=== PATIENT | male | born 1980 | race Caucasian/White ===

== ENCOUNTER 2020-03-05 18:44 | Emergency (ER) | payer MEDICAID ==
[~2020-03-05] VITALS: Ht 182.9 cm; Wt 102.7 kg
[2020-03-05 19:02] VITALS: Ht 182.9 cm; Wt 102.7 kg
[2020-03-05] MEDS ORDERED: LISINOPRIL-HCT1 EAC8 PO (19:04)
[2020-03-05] MEDS ORDERED: ZOLOFT50 MG PO (19:04)
[2020-03-05] MEDS ORDERED: ADDERALL 30 MG30 MG PO (19:05)
[2020-03-05] MEDS ORDERED: STERAPRED DS 1010 MG PO (19:26)
[2020-03-05] MEDS ORDERED: VISTARIL25 MG PO (19:26)
[2020-03-05 19:53] VITALS: BP 127/86
== END 2020-03-05 19:53 | disposition home or self-care (01) ==
LOC: D.ER 18:44
DX: L25.9 Unspecified contact dermatitis, unspecified cause (principal); I10 Essential (primary) hypertension; Z72.0 Tobacco use